=== PATIENT | female | born 1955 | race Caucasian/White ===

== ENCOUNTER 2018-12-22 13:54 | Emergency (ER) | payer OTHER ==
[~2018-12-22] VITALS: Ht 154.9 cm; Wt 64.8 kg
[2018-12-22 14:04] VITALS: Ht 154.9 cm; Wt 64.8 kg
[2018-12-22] MEDS ORDERED: SOD CHLORIDE 0.9% 1,000 ML IV STA (16:25)
[2018-12-22] MEDS ORDERED: ONDANSETRON 4 MG INJ IV STA (16:25)
[2018-12-22] MEDS ORDERED: KETOROLAC 15 MG INJ IV STA (16:25)
[2018-12-22] MEDS ORDERED: BELLADONNA/PHENOBARBITAL TAB PO STA (16:25)
[2018-12-22] MEDS ORDERED: LIDOCAINE/MYLANTA 40 ML BTL PO STA (16:25)
--- NOTE | 2018-12-22 16:49 | ERD ---
ER Documentation Chief Complaint Chief Complaint ABDOMINAL PAIN, VOMITTING AND DIARRHEA X 3 DAYS HPI 63-year-old woman complains of diffuse abdominal cramping with multiple episodes of clear nonbloody nonbilious emesis and loose diarrhea since last night, denies any unusual food or medication intake. Patient denies recent travel or antibiotic use, denies fevers or chills, no chest pain or shortness of breath, no blood per rectum or melena. ROS All systems reviewed and are negative except as per history of present illness. Medications Home Meds Reported Medications Cholecalciferol (Vitamin D3) 5,000 Unit Tablet, 5000 UNIT PO DAILY, TAB 12/22/18 Nebivolol Hcl* (Bystolic*) 10 Mg Tablet, 5 MG PO NEEDED, #30 TAB 12/22/18 Atorvastatin Calcium* (Atorvastatin Calcium*) 20 Mg Tablet, 10 MG PO QHS, #30 TAB 12/22/18 Losartan-Hydrochlorothiazide (Losartan-HCTZ) 100-25 Mg Tab, 1 TAB PO DAILY, TAB 12/22/18 Allergies Allergies: Coded Allergies: No Known Allergy (Unverified , 12/22/18) PMhx/Soc Hypertension Medical and Surgical Hx: pt denies Medical Hx, pt denies Surgical Hx Hx Alcohol Use: No Hx Substance Use: No Hx Tobacco Use: No Smoking Status: Never smoker FmHx Family History: No diabetes Physical Exam Vitals Vital Signs Date Temp Pulse Resp B/P (MAP) Pulse Ox O2 O2 Flow FiO2 Time Delivery Rate 12/22/18 99.1 114 20 175/86 98 14:04 (115) Physical Exam GENERAL: Well-developed, well-nourished, well-hydrated, in no apparent distress, looks nontoxic in appearance HEENT: Moist mucous membranes, pink conjunctiva, no cervical spine tenderness or step-off deformities, no goiter, no jaundice or icterus, extraocular movements intact without pain. No submandibular induration, and no pharyngeal erythema NEURO: Alert and oriented 3, cranial nerves II through XII intact bilaterally, pupils equal round reactive to light, no focal deficits or facial asymmetry, sensation intact distally Strength 5/5 in upper and lower extremities bilatera lly CARDIAC: Regular rate and rhythm, no murmurs rubs or gallops LUNGS: Clear bilaterally no wheezing crackles or stridor ABDOMEN: Soft nontender, no guarding, no rigidity, no rebound, no psoas sign no obturator sign. Normoactive bowel sounds SKIN: Warm and dry to touch, no abrasions, contusions, or hematomas, no lacerations, no ecchymosis, no target lesions, and without ulcers EXTREMITIES: No clubbing cyanosis or edema, calves are bilaterally symmetrical, no Homans sign, no popliteal cord sign. Distal pulses equal and bilateral PSYCH: Normal affect without agitation or irritability Result Diagram: 12/22/18 1634 12/22/18 1634 Results 24 hrs Laboratory Tests Test 12/22/18 16:34 White Blood Count 6.3 10^3/ul Red Blood Count 5.43 10^6/ul Hemoglobin 14.2 g/dl Hematocrit 44.1 % Mean Corpuscular Volume 81.2 fl Mean Corpuscular Hemoglobin 26.2 pg Mean Corpuscular Hemoglobin Concent 32.2 g/dl Red Cell Distribution Width 13.7 % Platelet Count 332 10^3/UL Mean Platelet Volume 9.7 fl Immature Granulocytes % 0.300 % Neutrophils % 69.1 % Lymphocytes % 20.2 % Monocytes % 10.1 % Eosinophils % 0.0 % Basophils % 0.3 % Nucleated Red Blood Cells % 0.0 /100WBC Immature Granulocytes # 0.020 10^3/ul Neutrophils # 4.4 10^3/ul Lymphocytes # 1.3 10^3/ul Monocytes # 0.6 10^3/ul Eosinophils # 0.0 10^3/ul Basophils # 0.0 10^3/ul Nucleated Red Blood Cells # 0.0 10^3/ul Prothrombin Time 12.4 Sec Prothrombin Time Ratio 1.0 INR International Normalized Ratio 0.91 Activated Partial Thromboplast Time 33.7 Sec Urine Color STRAW Urine Clarity CLEAR Urine pH 5.0 Urine Specific [place] 1.004 Urine Ketones NEGATIVE mg/dL Urine Nitrite NEGATIVE mg/dL Urine Bilirubin NEGATIVE mg/dL Urine Urobilinogen NEGATIVE mg/dL Urine Leukocyte Esterase NEGATIVE Tri/ul Urine Microscopic RBC 8 /HPF Urine Microscopic WBC 1 /HPF Urine Hemoglobin 2+ mg/dL Urine Glucose NEGATIVE mg/dL Urine Total Protein 1+ mg/dl Sodium Level 140 mmol/L Potassium Level 3.2 mmol/L Chloride Level 99 mmol/L Carbon Dioxide Level 28 mmol/L Anion Gap 13 Blood Urea Nitrogen 13 mg/dl Creatinine 0.56 mg/dl Est Glomerular Filtrat Rate mL/min > 60 mL/min Glucose Level 126 mg/dl Calcium Level 9.4 mg/dl Total Bilirubin 0.4 mg/dl Direct Bilirubin 0.00 mg/dl Indirect Bilirubin 0.4 mg/dl Aspartate Amino Transf (AST/SGOT) 74 IU/L Alanine Aminotransferase (ALT/SGPT) 93 IU/L Alkaline Phosphatase 51 IU/L Total Protein 8.5 g/dl Albumin 4.7 g/dl Globulin 3.80 g/dl Albumin/Globulin Ratio 1.23 Lipase 217 U/L Current Medications Medications Dose Sig/Charles Start Time Status Last (Trade) Ordered Route PRN Stop Time Admin Dose Reason Admin Sodium 1,000 ml @ Q1H STAT 12/22/18 DC 12/22/18 Chloride 1,000 mls/hr IV 16:25 12/22/18 17:07 17:24 Ondansetron 4 mg ONCE STAT 12/22/18 DC 12/22/18 HCl (Zofran IV 16:25 12/22/18 17:08 Inj) 16:27 40 ml ONCE STAT 12/22/18 DC 12/22/18 Miscellaneous PO 16:25 12/22/18 17:08 Medication 16:27 (Gi Cocktail (2)) Belladonna/ 2 tab ONCE STAT 12/22/18 DC 12/22/18 Phenobarbital PO 16:25 12/22/18 17:08 () 16:27 Ketorolac 15 mg ONCE STAT 12/22/18 DC 12/22/18 Tromethamine IV 16:25 12/22/18 17:07 (Toradol) 16:27 Procedures/MDM IV line was established patient was placed on environmental monitoring specialist rhythm strip revealed a sinus rhythm at about 80 bpm with upright P and T waves. Patient was afebrile I administered 1 L normal saline IV, Toradol 15 mg IV, Zofran 4 mg IV, GI cocktail p.o. CBC and electrolytes are normal, liver function tests are normal, urinalysis negative for infection. CT scan of the abdomen pelvis was performed,IMPRESSION: 1. Mild stranding at the root the mesentery with reactive mesenteric lymph nodes in the left upper abdomen adjacent to the jejunal loops. This may suggest mesenteric panniculitis or small-bowel enteritis. 2. No free fluid, free air, abscess. 3. Fatty change of the liver with areas of focal sparing. 4. Normal appendix and terminal ileum. 5. No renal calculi or obstructive uropathy. 7. 1.7 cm low-attenuation lesion in the lower pole the right kidney which some measure fluid density. This may represent a complex/hemorrhagic cyst versus solid lesion. Recommend further evaluation with ultrasound Differential diagnoses considered, included but not limited to acute coronary syndrome, pulmonary embolism, aortic dissection, abdominal aortic aneurysm, sepsis, stroke, meningitis, encephalitis, pneumonia, appendicitis, cholecystitis, bowel obstruction, pyelonephritis, nephrolithiasis, cystitis, as well as metabolic, hematologic, and electrolyte abnormalities. As well as abscess, cellulitis, fractures, and dislocations. Patient feels much better at this time, and vital signs are normal, symptoms have improved. I did give strict instructions to return to the ED if symptoms continue or worsen, patient will otherwise follow-up with primary care physician. Patient understood instructions and agreed to plan. Disclaimer: Inadvertent spelling and grammatical errors are likely due to EHR/dictation software use and do not reflect on the overall quality of patient care. Also, please note that the electronic time recorded on this note does not necessarily reflect the actual time of the patient encounter. Departure Diagnosis: Primary Impression: Abdominal pain Abdominal location: generalized Qualified Codes: R10.84 - Generalized abdominal pain Additional Impressions: Vomiting and diarrhea Gastroenteritis and colitis, viral Kidney mass Condition: Good EDDIE BA MD Dec 22, 2018 16:49
[2018-12-22] MEDS ORDERED: LOSA1TAB25 PO (17:16)
[2018-12-22] MEDS ORDERED: NEBI10TA2 PO (17:17)
[2018-12-22] MEDS ORDERED: ATOR20TA38 PO (17:17)
[2018-12-22] MEDS ORDERED: CHOL500010 PO (17:18)
[2018-12-22] MEDS ORDERED: NAPR-688 PO (17:43)
[2018-12-22] MEDS ORDERED: ONDA4TAB14 PO (17:43)
[2018-12-22 17:56] VITALS: BP 130/76; PULSE 78; RESP 20
== END 2018-12-22 17:58 | disposition home or self-care (01) ==
LOC: E/R 13:54
DX: A08.4 Viral intestinal infection, unspecified (principal); N28.89 Other specified disorders of kidney and ureter; R40.2142 Coma scale, eyes open, spontaneous, at arrival to emergency department; R40.2362 Coma scale, best motor response, obeys commands, at arrival to emergency department; R40.2252 Coma scale, best verbal response, oriented, at arrival to emergency department
CPT/HCPCS: 36415; 74176; 80053; 81001; 83690; 85025; 85610; 85730; 96374; 96375; J1885; J2405; J7030; Z7502; Z7610